=== PATIENT | male | born 1985 | race Caucasian/White ===

== ENCOUNTER 2016-09-26 02:44 | Emergency (ER) | payer OTHER ==
[~2016-09-26] VITALS: Ht 170.2 cm; Wt 61.2 kg
[~2016-09-26 02:44] MED LIST: AMOXICILLIN500 MG PO; ANTIVERT 25 MG25 MG PO; ATIVAN1 MG PO; BACTRIM DS 8001 TAB PO; FLEXERIL10 MG PO; NAPROXEN500 MG PO; TESSALON PERLE100 MG PO; ZITHROMAX Z-PA250 M1 PO
[2016-09-26 03:03] VITALS: BP 119/81
--- NOTE | 2016-09-26 03:26 | ED ANIMAL BITE/WOUND CHECK ---
History of Present Illness General Chief Complaint: Animal/Insect Bite Stated Complaint: DOG BITE YESTERDAY TO LT HAND C/O "INFECTION" Source: patient, family, old records Exam Limitations: no limitations Vital Signs & Intake/Output Vital Signs & Intake/Output Vital Signs Date Time Temp Pulse Resp B/P Pulse O2 O2 Flow FiO2 Ox Delivery Rate 09/26 0303 97.8 75 18 119/81 97 Room Air Allergies Coded Allergies: bismuth subsalicylate (From PEPTO-BISMOL) (Intermediate, VOMITING 09/11/15) Reconcile Medications No Known Home Medications Triage Note: PT TO TRIAGE C/O DOG BITE YESTERDAY AT 1700. PT STATES HE WRAPPED IT HIMSELF BUT JUST STARTED TO NOTICE REDNESS AND SWELLING NEAR THUMB AREA. PT STATES PAIN 8/10 SHARP INTERMITTENT PAIN. Triage Nurses Notes Reviewed? yes Onset: yesterday Duration: day(s):, constant, continues in ED, getting worse Timing: recent history Injury Environment: street Is Injury an Animal Bite? Yes Animal Type: dog Context of Animal Attack: entered animal's domain Appearance of Animal: appeared well Animal Immunization Status: up to date Observation/Capture: animal known/obs x10 days Severity of Attack: bitten Severity: moderate Modifying Factors: Worsens With: movement. Associated Symptoms: rash HPI: 1 day prior to admission patient was bitten by a Husky on the left thumb and middle finger. Prior to admission he noticed redness extending to his wrist. He denies fever chills nausea vomiting diarrhea abdominal pain chest pain shortness breath headache dysuria bleeding. Past History Travel History Traveled to [place] past 21 day No Medical History Any Pertinent Medical History? 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 No Review of Systems Review of Systems Constitutional: Reports: no symptoms. EENTM: Reports: no symptoms. Respiratory: Reports: no symptoms. Cardiovascular: Reports: no symptoms. GI: Reports: no symptoms. Genitourinary: Reports: no symptoms. Musculoskeletal: Reports: no symptoms. Skin: Reports: see HPI, rash. Neurological/Psychological: Reports: no symptoms. Hematologic/Endocrine: Reports: no symptoms. Immunologic/Allergic: Reports: no symptoms. All Other Systems: Reviewed and Negative Physical Exam Physical Exam General Appearance: well developed/nourished, alert, awake, anxious, mild distress Head: atraumatic, normal appearance Eyes: Bilateral: normal appearance, PERRL, EOMI. 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 Skin: intact, normal color, warm/dry, rash, erythema base of left thumb, puncture wound thenar eminence, abrasion middle finger Lymphatic: no anterior cervical cyndie Progress Differential Diagnosis: abscess, cellulitis Plan of Care: Orders Procedure Date/time Status XRY-HAND, 3 View LEFT 09/27 323 Active Current Medications Sig/Vicky Start time Last Medication Dose Stop Time Status Admin Ampicillin Sodium/ 3,000 MG ONCE ONE 09/26 0330 AC Sulbactam Sodium 09/26 0359 (Unasyn) Sodium Chloride 100 ML (Normal Saline 0.9%) Diagnostic Imaging: Viewed by Me: Radiology Read. Discussed w/RAD: Radiology Read. Radiology Impression: no acute abnormality, no fracture Departure Departure Time of Disposition: 417 Disposition: HOME OR SELF CARE Condition: Stable Clinical Impression Primary Impression: Dog bite of left hand Secondary Impressions: Cellulitis of hand Referrals: UNKNOWN (PCP/Family) Departure Forms: Customer Survey General Discharge Information Prescriptions: Current Visit Scripts Amoxicillin/Potassium Clav (Augmentin 875-125 Tablet) 1 TAB PO BID #20 TAB Ibuprofen 1 TAB PO Q6PRN PRN pain #50 TAB with food
--- NOTE | 2016-09-26 03:52 | RADIOLOGY REPORT ---
EXAMINATION: XR HAND, LEFT CLINICAL INFORMATION: Dogbite, cellulitis COMPARISON: 10/15/2015 TECHNIQUE: AP, lateral, and oblique views of the left hand. FINDINGS: Osseous alignment is anatomic. No acute fracture is seen. 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 No soft tissue gas or other significant focal soft tissue abnormality is seen. IMPRESSION: No acute findings identified.
[2016-09-26] MEDS ORDERED: IBUPROFEN600 M1 PO (04:19)
[2016-09-26] MEDS ORDERED: AUGMENTIN 875-1 EACH PO (04:19)
== END 2016-09-26 04:26 ==
LOC: ERH 02:44
DX: S61.452A Open bite of left hand, initial encounter (principal); L03.114 Cellulitis of left upper limb; W54.0XXA Bitten by dog, initial encounter
CPT/HCPCS: 73130-LT; 96374